=== PATIENT | female | born 1965 | race Caucasian/White ===

== ENCOUNTER → 2021-10-27 | Outpatient (CLI) | payer OTHER | LOC: CT 06:55 | DX: R07.9 Chest pain, unspecified (principal); R06.02 Shortness of breath; G43.709 Chronic migraine without aura, not intractable, without status migrainosus; F33.1 Major depressive disorder, recurrent, moderate; I34.1 Nonrheumatic mitral (valve) prolapse; M25.561 Pain in right knee; F32.A Depression, unspecified; G25.81 Restless legs syndrome | CPT/HCPCS: 71275; Q9967 ==